=== PATIENT | female | born 1950 | race Two or more races ===

== ENCOUNTER 2018-12-21 08:03 | Outpatient (CLI) | payer OTHER ==
[~2018-12-21] VITALS: Ht 152.4 cm; Wt 68.0 kg
== END 2018-12-21 09:40 | disposition home or self-care (01) ==
LOC: OFIC 805 08:03
DX: J31.2 Chronic pharyngitis (principal); R49.0 Dysphonia; E03.8 Other specified hypothyroidism; I10 Essential (primary) hypertension; E11.9 Type 2 diabetes mellitus without complications; Z79.84 Long term (current) use of oral hypoglycemic drugs